=== PATIENT | female | born 1985 | race Caucasian/White ===

== ENCOUNTER 2024-10-17 10:58 | Emergency (ER) | payer MEDICAID ==
[~2024-10-17] VITALS: Ht 162.6 cm; Wt 44.5 kg
[2024-10-17 11:03] VITALS: TEMP 98.6
[2024-10-17] MEDS: LORazepam 2 mg/ml vial IV ONE (11:42)
[2024-10-17] MEDS: normal saline 1000ML IV soln IVB ONE (11:42)
[2024-10-17 11:57] LABS: BASOPHILS # (AUTO) 0.1 X10'3 (0-0.2); BASOPHILS % (AUTO) 0.8 % (0-1); EOSINOPHILS % (AUTO) 0.4 % (0-6); HEMATOCRIT 35.5 % (35.0-45.0); HEMOGLOBIN 12.2 g/dl (12.0-16.0); LYMPHOCYTES # (AUTO) 1.7 X10'3 (1.1-4.8); LYMPHOCYTES % (AUTO) 23.5 % (21-51); MEAN CORPUSCULAR HEMOGLOBIN 31.7 PG (27.0-31.0); MEAN CORPUSCULAR HGB CONC 34.2 g/dL (33.0-36.5); MEAN CORPUSCULAR VOLUME 92.6 FL (78-98); MEAN PLATELET VOLUME 7.5 FL (7.4-10.4); MONOCYTES # (AUTO) 0.3 X10'3 (0-0.9); MONOCYTES % (AUTO) 4.8 % (2-12); NEUTROPHILS # (AUTO) 5.1 X10'3 (1.8-7.7); NEUTROPHILS % (AUTO) 70.5 % (42-75); PLATELET COUNT 323 X10'3 (140-440); RED BLOOD COUNT 3.83 X10'6 (4.20-5.60); RED CELL DISTRIBUTION WIDTH 14.6 % (11.5-14.5); WHITE BLOOD COUNT 7.2 X10'3 (4.5-11.0)
[2024-10-17 12:10] LABS: ALBUMIN 4.3 G/DL (3.4-5.0); ANION GAP 16 (8-16); BLOOD UREA NITROGEN 12 MG/DL (7-18); BUN/CREATININE RATIO 16.9 (10.0-20.0); CALCIUM 8.9 MG/DL (8.5-10.1); CHLORIDE 103 MMOL/L (99-107); CREATININE 0.71 MG/DL (0.40-0.90); ETHANOL 128 MG/DL (<10); GLUCOSE 94 MG/DL (70-104); MAGNESIUM 1.8 MG/DL (1.5-2.4); POTASSIUM 3.4 MMOL/L (3.5-5.1); SODIUM 139 MMOL/L (135-145); TOTAL CARBON DIOXIDE 20.5 MMOL/L (24-32); eCRCL 74 ML/MIN; eGFR > 90 ML/MIN
[2024-10-17 12:56] LABS: APTT 27 SECONDS (22-32)
[2024-10-17 13:00] LABS: PROTHROMBIN TIME 10.3 SECONDS (9.0-12.0)
[2024-10-17] MEDS ORDERED: CHLO25CA10 PO (14:53)
[2024-10-17] MEDS ORDERED: PANT-47 PO (14:53)
[2024-10-17 14:54] LABS: ALANINE AMINOTRANSFERASE 25 U/L (12-78); ALBUMIN/GLOBULIN RATIO 1.2 (1.1-1.5); ALKALINE PHOSPHATASE 45 IU/L (46-116); ASPARTATE AMINO TRANSFERASE 35 U/L (10-37); BILIRUBIN,DIRECT 0.2 MG/DL (0-0.3); BILIRUBIN,TOTAL 0.5 MG/DL (0.1-1.0); TOTAL PROTEIN 7.9 G/DL (6.4-8.2)
[2024-10-17 15:22] VITALS: BP 116/71; PULSE 99; RESP 16; O2SAT 97
== END 2024-10-17 15:27 | disposition home or self-care (01) ==
LOC: ER 10:58
DX: F10.129 Alcohol abuse with intoxication, unspecified (principal); K92.0 Hematemesis; F17.200 Nicotine dependence, unspecified, uncomplicated; R07.89 Other chest pain; Y90.9 Presence of alcohol in blood, level not specified
CPT/HCPCS: 36415; 71045; 80048; 80076; 80320; 83735; 85025; 85610; 85730; 86885; 86900; 86901; 93005; 96361; 96374; 99285; J2060; J7030

== ENCOUNTER 2024-12-18 15:37 | Emergency (ER) | payer MEDICAID ==
[~2024-12-18] VITALS: Ht 157.5 cm; Wt 45.1 kg
[~2024-12-18 15:37] MED LIST: CHLO25CA10 PO; PANT-47 PO
[2024-12-18] MEDS: acetaminophen 325mg tablet PO ONE (16:37)
[2024-12-18] MEDS ORDERED: IBUP-1984 PO (16:38)
[2024-12-18] MEDS ORDERED: PENI500T2 PO (16:38)
[2024-12-18 16:47] VITALS: BP 130/70; PULSE 86; RESP 16; TEMP 98.8; O2SAT 98
== END 2024-12-18 16:51 | disposition home or self-care (01) ==
LOC: ER 15:37
DX: K02.9 Dental caries, unspecified (principal); Z79.899 Other long term (current) drug therapy
CPT/HCPCS: 99283